=== PATIENT | male | born 1945 | race Caucasian/White ===

== ENCOUNTER 2016-09-06 13:19 | Inpatient (IN) | payer OTHER, MEDICAID ==
[~2016-09-06] VITALS: Ht 180.3 cm; Wt 75.3 kg
[2016-09-06 13:19] VITALS: BP_SYST 161
[2016-09-06] MEDS ORDERED: NALOXONE HCL 2 MG/2 ML SYR (NARCAN) IV ONE (13:45)
[2016-09-06 13:52] LABS: BASOPHILS # (AUTO) 0.1 K/uL (0.0-0.2); BASOPHILS % (AUTO) 1.3 % (0.0-2.0); EOSINOPHILS # (AUTO) 0.1 K/uL (0.0-0.4); HEMATOCRIT 37.8 % (36-54); HEMOGLOBIN 12.1 g/dL (14.0-18.0); LYMPHOCYTES # (AUTO) 0.9 K/uL (1.0-5.5); LYMPHOCYTES % (AUTO) 13.4 % (20.5-51.5); MEAN CORPUSCULAR HEMOGLOBIN 29 pg (27-31); MEAN CORPUSCULAR HGB CONC 32 % (32-36); MEAN CORPUSCULAR VOLUME 91 fL (79.0-98.0); MONOCYTES # (AUTO) 0.5 K/uL (0.0-1.0); MONOCYTES % (AUTO) 7.7 % (1.7-9.3); NEUTROPHILS # (AUTO) 4.8 K/uL (1.8-7.7); NEUTROPHILS % (AUTO) 75.6 % (40.0-70.0); PLATELET COUNT (AUTO) 124 K/uL (130-430); RED BLOOD CELL COUNT(AUTO) 4.17 MIL/uL (4.2-6.2); RED CELL DISTRIBUTION WIDTH 13.4 % (9.0-15.0); WHITE BLOOD COUNT (AUTO) 6.4 K/uL (4.8-10.8)
[2016-09-06 14:02] LABS: ANION GAP 6 (5-15); CALCIUM 9.3 mg/dL (8.4-11.0); CHLORIDE 98 mmol/L (98-107); GLUCOSE 84 mg/dL (70-99); POTASSIUM 3.8 mmol/L (3.5-5.1); SODIUM SERUM 137 mmol/L (136-145); UREA NITROGEN, BLOOD 29 mg/dL (8-21)
[2016-09-06 14:06] LABS: ALANINE AMINOTRANSFERASE 15 U/L (12-78); ALBUMIN 3.5 g/dL (3.4-4.8); ASPARTATE AMINOTRANSFERASE 26 U/L (10-37); CREATINE KINASE, TOTAL 113 U/L (39-308); INR 1.2 (0.80-1.20); PROTHROMBIN TIME 13.1 SECS (9.5-12.5); TOTAL PROTEIN, SERUM 8.1 g/dL (6.4-8.3)
[2016-09-06] MEDS ORDERED: INSU100V SQ (14:12)
[2016-09-06] MEDS ORDERED: ERGO500043 PO (14:12)
[2016-09-06] MEDS ORDERED: FOLI0.8T2 PO (14:12)
[2016-09-06] MEDS ORDERED: FAMO40TA7 PO (14:12)
[2016-09-06] MEDS ORDERED: SEN30 PO (14:12)
[2016-09-06] MEDS ORDERED: NOR10 PO (14:12)
[2016-09-06] MEDS ORDERED: SEVE800T8 PO (14:12)
[2016-09-06] MEDS ORDERED: NALOXONE HCL 2 MG/2 ML SYR ONE (14:35)
[2016-09-06 15:35] LABS: THYROID STIMULATING HORMONE 4.07 uIu/mL (0.34-4.82)
[2016-09-06] MEDS ORDERED: ALBUTEROL SULFATE 0.083% 2.5 MG/3 ML VIAL.NEB INH PRN (16:15)
[2016-09-06 16:53] VITALS: BP_SYST 133
[2016-09-06 22:22] VITALS: BP_SYST 133
[2016-09-07 01:40] VITALS: BP_SYST 152
[2016-09-07 06:05] VITALS: BP_SYST 147
[2016-09-07 06:38] LABS: BASOPHILS % (AUTO) 0.5 % (0.0-2.0); EOSINOPHILS # (AUTO) 0.4 K/uL (0.0-0.4); EOSINOPHILS % (AUTO) 7.6 % (0.0-4.0); HEMATOCRIT 35.6 % (36-54); HEMOGLOBIN 11.6 g/dL (14.0-18.0); LYMPHOCYTES # (AUTO) 1.1 K/uL (1.0-5.5); LYMPHOCYTES % (AUTO) 22.1 % (20.5-51.5); MEAN CORPUSCULAR HEMOGLOBIN 29 pg (27-31); MEAN CORPUSCULAR HGB CONC 33 % (32-36); MEAN CORPUSCULAR VOLUME 90 fL (79.0-98.0); MONOCYTES # (AUTO) 0.3 K/uL (0.0-1.0); MONOCYTES % (AUTO) 6.2 % (1.7-9.3); NEUTROPHILS % (AUTO) 63.6 % (40.0-70.0); PLATELET COUNT (AUTO) 115 K/uL (130-430); RED BLOOD CELL COUNT(AUTO) 3.96 MIL/uL (4.2-6.2); RED CELL DISTRIBUTION WIDTH 13.7 % (9.0-15.0); WHITE BLOOD COUNT (AUTO) 4.8 K/uL (4.8-10.8)
[2016-09-07 06:56] LABS: PHOSPHORUS 3.2 mg/dL (2.7-4.5); THYROID STIMULATING HORMONE 2.48 uIu/mL (0.34-4.82)
[2016-09-07 08:09] VITALS: BP_SYST 147
[2016-09-07] MEDS ORDERED: CINACALCET HCL 30 MG TABLET PO SCH (09:00)
[2016-09-07] MEDS ORDERED: ENOXAPARIN SODIUM 30 MG/0.3 ML SYRINGE SUBCUT SCH (09:00)
[2016-09-07] MEDS ORDERED: FAMOTIDINE 20 MG TABLET PO ONE (09:45)
[2016-09-07] MEDS ORDERED: NEPHROVITE, (FOLIC ACID/VITAMIN B COMP W-C 1 TAB) PO ONE (09:45)
[2016-09-07] MEDS ORDERED: amLODIPine BESYLATE 10 MG TABLET PO ONE (09:45)
[2016-09-07 12:08] VITALS: BP_SYST 124
[2016-09-07 16:08] VITALS: BP_SYST 148
[2016-09-07 16:47] VITALS: BP_SYST 137
[2016-09-07] MEDS ORDERED: SEVELAMER HCL 800 MG TABLET PO SCH (18:00)
[2016-09-08] MEDS ORDERED: FAMOTIDINE 20 MG TABLET PO SCH (09:00)
[2016-09-08] MEDS ORDERED: NEPHROVITE, (FOLIC ACID/VITAMIN B COMP W-C 1 TAB) PO SCH (09:00)
[2016-09-08] MEDS ORDERED: amLODIPine BESYLATE 10 MG TABLET PO SCH (09:00)
== END 2016-09-07 19:02 | disposition home or self-care (01) | DRG 922 ==
LOC: SED 13:19 → STU 16:02
PROC: 5A1D00Z (ICD-10-PCS; principal; 2016-09-06)
DX: T68.XXXA Hypothermia, initial encounter (principal); N18.6 End stage renal disease; I12.0 Hypertensive chronic kidney disease with stage 5 chronic kidney disease or end stage renal disease; Z96.653 Presence of artificial knee joint, bilateral; E83.39 Other disorders of phosphorus metabolism; E11.22 Type 2 diabetes mellitus with diabetic chronic kidney disease; Z89.432 Acquired absence of left foot; Z79.899 Other long term (current) drug therapy
CPT/HCPCS: 36415; 70450-TC; 71010; 80053; 82140-TC; 82533; 82550-TC; 82962; 83605; 83880; 84100-TC; 84439; 84443-TC; 84484; 85025; 85610-TC; 85730-TC; 87040-TC; 87081; 90935; 93005; 96374; 99285; J1650; J2310; J7030